=== PATIENT | male | born 1950 | race Caucasian/White ===

== ENCOUNTER → 2019-06-01 13:36 | Outpatient (CLI) | payer OTHER ==
--- NOTE | 2019-06-06 13:56 | EC ---
PATIENT:LIZZIE SUÁREZ DATE OF SERVICE: 06/01/19 SEX: M MEDICAL RECORD: [id number] DATE OF : 50 [facility] AGE OF PATIENT: 69 ADMISSION DATE: 06/01/19 REFERRING PHYSICIAN: INTERPRETING PHYSICIAN: ERIC TEJEDA MD ECHOCARDIOGRAM REPORT ECHO CHARGES 4 ECHO COMPLETE Date: 06/01/19 CLINICAL DIAGNOSIS: ABNORMAL EKG H/O HTN ECHOCARDIOGRAPHIC MEASUREMENTS (adult normal given) AC root (d.<3.7cm) 3.4 cm LV Septum d (<1.2 cm> 1.2 cm Valve Excursion 2.3 cm LV Septum (systole) 1.8 cm Left Atria (s.<4.0cm> 4.9 cm LVPW d(<1.2cm) 1.1 cm RV (d.<2.3cm) 3.1 cm LVPW (sytole) 2.1 cm LV diastole(<5.6CM) 6.5 cm MV E-F(>70mm/sec) cm LV systole 3.8 cm LVOT Diameter 2.3 cm MV exc.(>10mm) cm Est.ejection fraction (50-75%) % DOPPLER: LVIT cm/sec A 55.0 cm/sec E 85.0 cm/sec LA cm/sec RVSP 37.0 mmHg LVOT 129 cm/sec AOP1/2T m/s Asc. Ao 203 cm/sec RVOT 79.0 cm/sec RA cm/sec PA 92.0 cm/sec AV Gradient Peak 16.4 mmHg AV Mean 8.1 mmHg AV Area 2.5 cm MV Gradient Peak 3.4 mmHg MV Mean 1.1 mmHg MV Area cm COMMENTS: OP - HC Supervisor Central Supply: 1 [employer] Team Member: 3 Dr. Penaloza TAPE# PACS Pericardial Effusion N DATE OF SERVICE: Adequate 2D, color flow imaging, spectral Doppler, and M-Mode No LVH. LV internal dimensions are normal. Wall motion is normal. EF is greater than or equal to 55%. Aortic valve is tricuspid. No evidence of stenosis by Doppler interrogation. Left atrium is dilated at 4.9 cm. Mitral valve shows no prolapse. Trace MR. Right-sided chambers are grossly normal. Trace TR. ECHOCARDIOGRAM REPORT [id number] LIZZIE SUÁREZ TRANSINT:[id number] Voice Confirmation ID: [id number] DOCUMENT ID: [id number] REIC TEJEDA MD at 1356 CC: [id number] DICTATION DATE: 06/03/19 1225 PRINCIPLE SOFTWARE ENGINEER: 06/03/19 1240 DEP CLI 06/01/19 [place] [id number] [place] [id number]
== END | disposition home or self-care (01) ==
LOC: D.HCCECHO 13:36
PROVIDERS: ATTEND Internal Medicine Interventional Cardiology
DX: I10 Essential (primary) hypertension (principal)